=== PATIENT | male | born 1990 | race African-American/Black ===

== ENCOUNTER 2017-08-21 10:03 | Inpatient (IN) | payer MEDICAID ==
[~2017-08-21] VITALS: Ht 182.9 cm; Wt 92.1 kg
[2017-08-21] VITALS (17 sets, daily range): BP systolic 129–167; BP diastolic 67–120
[~2017-08-21 10:03] MED LIST: HYDR-519 PO; IBUP-1636 PO; MULT-1010 PO
[2017-08-21] MEDS ORDERED: LACTATED RINGERS 1,000 ML IV SCH (10:45)
[2017-08-21 11:43] LABS: BASOPHILS % 0.5 % (0.0-2.0); EOSINOPHILS % 1.6 % (0.0-5.0); HEMATOCRIT. 41.7 % (42.0-52.0); HEMOGLOBIN. 14.3 g/dL (14.0-18.0); LYMPHOCYTES % 20.8 % (20.0-50.0); MEAN CORPUSCULAR HEMOGLOBIN 32.4 pg (28.0-32.0); MEAN CORPUSCULAR VOLUME 94.5 fL (80.0-94.0); MEAN PLATELET VOLUME 8.3 fl (7.4-10.4); MONOCYTES % 5.7 % (2.0-8.0); NEUTROPHILS % 71.4 % (40.0-76.0); PLATELET 320 x1000/uL (130-400); RED BLOOD CELL COUNT 4.41 mill/uL (4.7-6.1); RED CELL DISTRIBUTION WIDTH 13.6 % (11.6-14.6)
[2017-08-21] MEDS ORDERED: BUPIVACAINE HCL/PF 0.25% (2.5MG/ML) 10ML ONE (13:56)
[2017-08-21] MEDS ORDERED: BACITRACIN 50,000 UNITS/VIAL ONE (13:56)
[2017-08-21] MEDS ORDERED: NORMAL SALINE 0.9% 10 ML SYR ONE (13:56)
[2017-08-21] MEDS ORDERED: MIDAZOLAM HCL 2 MG/2 ML VIAL ONE (14:26)
[2017-08-21] MEDS ORDERED: PROPOFOL 200MG/20ML VIAL IV ONE (14:27)
[2017-08-21] MEDS ORDERED: LIDOCAINE HCL 1% 20ML VIAL (Pyxis) INJ ONE (14:27)
[2017-08-21] MEDS ORDERED: FENTANYL CITRATE/PF 50MCG/ML 2ML VIAL ONE (14:39)
[2017-08-21] MEDS ORDERED: ALBUTEROL 90MCG/PUFF 17GM INHALER INH ONE (14:56)
[2017-08-21] MEDS ORDERED: MIDAZOLAM HCL 5 MG/5 ML VIAL ONE (15:07)
[2017-08-21] MEDS ORDERED: SUCCINYLCHOLINE CHLORIDE 200MG/10ML VIAL IV ONE (15:12)
[2017-08-21] MEDS ORDERED: ALBUTEROL (0.083%) 2.5MG/3ML NEB ONE (16:15)
[2017-08-21 16:16] LABS: BG BASE EXCESS -2.5 mmol/L (-2.0-2.0); BG CARBOXYHEMOGLOBIN 1.2 % (0.5-1.5); BG DEOXYHEMOGLOBIN 7.9 % (0.0-5.0); BG FRACTION INSPIRED OXYGEN 50; BG METHEMOGLOBIN 0.5 % (0.0-1.5); BG OXYHEMOGLOBIN 90.4 % (94.0-97.0); BG PCO2 60.2 mmHg (35.0-45.0); BG PH 7.253 (7.350-7.450); BG PO2 70.7 mmHg (75.0-100.0); BG PRESSURE SUPPORT 10; BG SAMPLE SITE LEFT BRACHIAL; BG TOTAL HEMOGLOBIN 15.3 g/dL (12.0-18.0); BG VENT MODE VENT - CPAP
[2017-08-21] MEDS ORDERED: SODIUM CHLORIDE 0.9% 1,000 ML IV SCH (16:26)
[2017-08-21] MEDS ORDERED: ALBUTEROL (0.083%) 2.5MG/3ML NEB HHN NR (16:30)
[2017-08-21] MEDS ORDERED: ONDANSETRON HCL 4MG/2ML VIAL IV PRN ×2 (16:30→19:15)
[2017-08-21] MEDS ORDERED: DEXAMETHASONE 4MG/ML 1ML VIAL ONE (16:55)
[2017-08-21 17:54] LABS: BG BASE EXCESS -2.8 mmol/L (-2.0-2.0); BG CARBOXYHEMOGLOBIN 0.9 % (0.5-1.5); BG DEOXYHEMOGLOBIN 0.2 % (0.0-5.0); BG FRACTION INSPIRED OXYGEN 100; BG HCO3 ACT 23.1 mmol/L (22.0-26.0); BG METHEMOGLOBIN 0.4 % (0.0-1.5); BG OXYGEN SATURATION 99.8 % (92.0-98.5); BG OXYHEMOGLOBIN 98.5 % (94.0-97.0); BG PCO2 44.4 mmHg (35.0-45.0); BG PH 7.335 (7.350-7.450); BG PO2 414.7 mmHg (75.0-100.0); BG SAMPLE SITE LEFT BRACHIAL; BG TIDAL VOLUME(mL) 600 mL; BG VENT MODE VENT - A/C; BG VENT RATE 12 set
[2017-08-21] MEDS: PROPOFOL 10MG/ML 100ML 100 ML IV PRN ×3 (18:57→23:00)
[2017-08-21] MEDS ORDERED: ACETAMINOPHEN 325MG TABLET GT PRN (19:15)
[2017-08-21] MEDS ORDERED: METHYLPREDNISOLONE SOD SUCC 125 MG/2 ML VIAL IV NR (19:15)
[2017-08-21] MEDS: DEXT 5%/0.45% NACL 1000ML 1,000 ML IV SCH (20:04)
[2017-08-21] MEDS: ENOXAPARIN 40MG/0.4ML SYR SUBCUT SCH (20:05)
[2017-08-21] MEDS: FAMOTIDINE 20MG/2ML VIAL IV SCH (20:15)
[2017-08-21] MEDS: IPRATROPIUM/ALBUTEROL 0.5-3(2.5)MG/3ML NEB HHN SCH ×2 (20:27→23:52)
[2017-08-21 20:30] LABS: HEMATOCRIT. 42.5 % (42.0-52.0); HEMOGLOBIN. 14.4 g/dL (14.0-18.0); MEAN CORPUSCULAR HEMOGLOBIN 32.2 pg (28.0-32.0); MEAN CORPUSCULAR VOLUME 95.3 fL (80.0-94.0); MEAN PLATELET VOLUME 8.4 fl (7.4-10.4); PLATELET 302 x1000/uL (130-400); RED BLOOD CELL COUNT 4.46 mill/uL (4.7-6.1); RED CELL DISTRIBUTION WIDTH 13.6 % (11.6-14.6)
[2017-08-21 20:37] LABS: CARBON DIOXIDE 24 mEq/L (21-32); CHLORIDE 106 mEq/L (98-107)
[2017-08-21 20:54] LABS: PLATELET ESTIMATE NORMAL
[2017-08-21] MEDS ORDERED: CEFEPIME HCL 1000MG/VIAL INJ IV SCH (21:00)
[2017-08-21] MEDS ORDERED: CEFEPIME HCL 1000MG/VIAL INJ IM SCH (21:00)
[2017-08-21] MEDS: CEFEPIME 1,000 MG in DEXTROSE 5% WATER 50 ML IV SCH (22:00)
[2017-08-21] MEDS: DIPHENHYDRAMINE 50MG/ML VIAL IV SCH (22:00)
[2017-08-21] MEDS: METHYLPREDNISOLONE SOD SUCC 125 MG/2 ML VIAL IV SCH (22:00)
[2017-08-22] VITALS (45 sets, daily range): BP systolic 101–153; BP diastolic 51–101
[2017-08-22] MEDS: PROPOFOL 10MG/ML 100ML 100 ML IV PRN ×3 (01:39→06:56)
[2017-08-22 02:39] LABS: *AMPHETAMINES SCREEN URINE NEGATIVE (NEGATIVE); *BARBITURATES SCREEN URINE NEGATIVE (NEGATIVE); *BENZODIAZEPINES SCREEN URINE PRESUMTIVE POSITIVE (NEGATIVE); *COCAINE SCREEN URINE PRESUMTIVE POSITIVE (NEGATIVE); CANNABINOID URINE SCREEN NEGATIVE (NEGATIVE); METHADONE URINE SCREEN NEGATIVE (NEGATIVE); OPIATES URINE SCREEN PRESUMTIVE POSITIVE (NEGATIVE); PHENCYCLIDINE URINE SCREEN NEGATIVE (NEGATIVE)
[2017-08-22] MEDS: IPRATROPIUM/ALBUTEROL 0.5-3(2.5)MG/3ML NEB HHN SCH ×6 (04:05→23:24)
[2017-08-22] MEDS: METHYLPREDNISOLONE SOD SUCC 125 MG/2 ML VIAL IV SCH ×3 (05:09→22:19)
[2017-08-22] MEDS: DIPHENHYDRAMINE 50MG/ML VIAL IV SCH ×3 (05:09→22:19)
[2017-08-22 05:59] LABS: HEMATOCRIT. 43.1 % (42.0-52.0); HEMOGLOBIN. 14.6 g/dL (14.0-18.0); MEAN CORPUSCULAR VOLUME 94.2 fL (80.0-94.0); MEAN PLATELET VOLUME 9.1 fl (7.4-10.4); PLATELET 325 x1000/uL (130-400); RED BLOOD CELL COUNT 4.58 mill/uL (4.7-6.1); RED CELL DISTRIBUTION WIDTH 13.5 % (11.6-14.6)
[2017-08-22 06:55] LABS: CARBON DIOXIDE 22 mEq/L (21-32); CHLORIDE 108 mEq/L (98-107)
[2017-08-22 07:49] LABS: PLATELET ESTIMATE NORMAL
[2017-08-22] MEDS: FAMOTIDINE 20MG/2ML VIAL IV SCH ×2 (08:07→20:32)
[2017-08-22] MEDS: CEFEPIME 1,000 MG in DEXTROSE 5% WATER 50 ML IV SCH ×2 (08:07→20:32)
[2017-08-22] MEDS: DEXT 5%/0.45% NACL 1000ML 1,000 ML IV SCH (08:08)
[2017-08-22 08:42] LABS: BG BASE EXCESS -0.6 mmol/L (-2.0-2.0); BG CARBOXYHEMOGLOBIN 0.8 % (0.5-1.5); BG DEOXYHEMOGLOBIN 1.1 % (0.0-5.0); BG FRACTION INSPIRED OXYGEN 50; BG HCO3 ACT 22.9 mmol/L (22.0-26.0); BG METHEMOGLOBIN 0.3 % (0.0-1.5); BG OXYGEN SATURATION 98.9 % (92.0-98.5); BG OXYHEMOGLOBIN 97.8 % (94.0-97.0); BG PCO2 34.6 mmHg (35.0-45.0); BG PH 7.438 (7.350-7.450); BG PO2 128.2 mmHg (75.0-100.0); BG SAMPLE SITE RIGHT BRACHIAL; BG TIDAL VOLUME(mL) 600 mL; BG TOTAL HEMOGLOBIN 15.9 g/dL (12.0-18.0); BG VENT MODE VENT - A/C; BG VENT RATE 16 set
[2017-08-22 10:20] LABS: BG BASE EXCESS -2.5 mmol/L (-2.0-2.0); BG CARBOXYHEMOGLOBIN 0.3 % (0.5-1.5); BG DEOXYHEMOGLOBIN 0.9 % (0.0-5.0); BG FRACTION INSPIRED OXYGEN 50; BG HCO3 ACT 21.1 mmol/L (22.0-26.0); BG METHEMOGLOBIN 0.1 % (0.0-1.5); BG OXYGEN SATURATION 99.1 % (92.0-98.5); BG OXYHEMOGLOBIN 98.7 % (94.0-97.0); BG PCO2 33.8 mmHg (35.0-45.0); BG PH 7.414 (7.350-7.450); BG PO2 224.1 mmHg (75.0-100.0); BG PRESSURE SUPPORT 8; BG SAMPLE SITE RIGHT BRACHIAL; BG TOTAL HEMOGLOBIN 15.7 g/dL (12.0-18.0); BG VENT MODE VENT - CPAP
[2017-08-22] MEDS ORDERED: HYDROCODONE/ACETAMINOPHEN 10/325MG TABLET PO PRN (17:45)
[2017-08-22] MEDS ORDERED: ACETAMINOPHEN 650MG/20.3ML UDC GT PRN (19:30)
[2017-08-22] MEDS: ENOXAPARIN 40MG/0.4ML SYR SUBCUT SCH (19:54)
[2017-08-22] MEDS: ACETYLCYSTEINE 100MG/ML 10% VIAL 4ML INH SCH (23:23)
[2017-08-23] VITALS (13 sets, daily range): BP systolic 115–158; BP diastolic 54–84
[2017-08-23] MEDS: IPRATROPIUM/ALBUTEROL 0.5-3(2.5)MG/3ML NEB HHN SCH ×3 (03:14→11:48)
[2017-08-23] MEDS: METHYLPREDNISOLONE SOD SUCC 125 MG/2 ML VIAL IV SCH (05:18)
[2017-08-23] MEDS: DIPHENHYDRAMINE 50MG/ML VIAL IV SCH (05:18)
[2017-08-23 05:39] LABS: HEMATOCRIT. 38.3 % (42.0-52.0); MEAN CORPUSCULAR HEMOGLOBIN 32.2 pg (28.0-32.0); MEAN CORPUSCULAR VOLUME 94.7 fL (80.0-94.0); MEAN PLATELET VOLUME 9.5 fl (7.4-10.4); PLATELET 287 x1000/uL (130-400); RED BLOOD CELL COUNT 4.04 mill/uL (4.7-6.1); RED CELL DISTRIBUTION WIDTH 13.4 % (11.6-14.6)
[2017-08-23 05:55] LABS: CHLORIDE 108 mEq/L (98-107)
[2017-08-23 06:13] LABS: CARBON DIOXIDE 26 mEq/L (21-32)
[2017-08-23 07:48] LABS: PLATELET ESTIMATE NORMAL
[2017-08-23] MEDS: ACETYLCYSTEINE 100MG/ML 10% VIAL 4ML INH SCH (08:02)
[2017-08-23] MEDS ORDERED: LEVOFLOXACIN 500MG TABLET PO NR (08:45)
[2017-08-23] MEDS: FAMOTIDINE 20MG/2ML VIAL IV SCH (10:01)
== END 2017-08-23 13:40 | disposition home or self-care (01) | DRG 342 ==
LOC: OR 10:03 → MICUNO 18:40
PROVIDERS: ADMIT Internal Medicine; ATTEND Orthopaedic Surgery
PROC: 5A1945Z Respiratory Ventilation, 24-96 Consecutive Hours (ICD-10-PCS; principal; 2017-08-21)
PROC: 0BH17EZ Insertion of Endotracheal Airway into Trachea, Via Natural or Artificial Opening (ICD-10-PCS; 2017-08-21)
DX: S52.532A Colles' fracture of left radius, initial encounter for closed fracture (principal); J96.00 Acute respiratory failure, unspecified whether with hypoxia or hypercapnia; J18.9 Pneumonia, unspecified organism; E87.2 Acidosis; S82.202A Unspecified fracture of shaft of left tibia, initial encounter for closed fracture; S52.92XA Unspecified fracture of left forearm, initial encounter for closed fracture; S82.309A Unspecified fracture of lower end of unspecified tibia, initial encounter for closed fracture; S82.839A Other fracture of upper and lower end of unspecified fibula, initial encounter for closed fracture; W13.2XXA Fall from, out of or through roof, initial encounter; F17.210 Nicotine dependence, cigarettes, uncomplicated; F14.90 Cocaine use, unspecified, uncomplicated; J98.01 Acute bronchospasm; J98.11 Atelectasis; Y93.89 Activity, other specified; Y92.89 Other specified places as the place of occurrence of the external cause; Z90.49 Acquired absence of other specified parts of digestive tract; Z53.8 Procedure and treatment not carried out for other reasons
CPT/HCPCS: 36415; 36600; 71010; 71260; 80048; 80053; 80305; 82375; 82805; 85025; 92610; 93970; 94002; 94003; 94640; 94667; 97162; 97164; A4216; J0330; J0692; J1100; J1200; J1650; J2250; J2405; J2704; J2930; J3010; J3490; J7030; J7060; J7120; J7608; J7611; J7620; A4315